=== PATIENT | female | born 1975 | race American Indian/Alaskan Native ===

== ENCOUNTER 2021-03-14 10:15 | Emergency (ER) | payer OTHER ==
[~2021-03-14] VITALS: Ht 170.2 cm; Wt 77.1 kg
--- NOTE | 2021-03-14 10:30 | NUR ---
HERE FOR MEDICAL CLEARANCE, PATIENT WANTS TO GO TO [facility] AND THEN TO A BOARD AND CARE. PATIENT IS ALERT AND ORIENTED X4, DENIES SI/HI AT THIS TIME. 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 GAMBOA AT BEDSIDE FOR AL.
--- NOTE | 2021-03-14 10:38 | NUR ---
DR. GAMBOA AT BEDSIDE FOR EVAL.
[2021-03-14] MEDS ORDERED: IBUPROFEN 600 MG TABLET ONE (10:40)
[2021-03-14] MEDS ORDERED: OLANZAPINE 5 MG TABLET ONE (10:40)
[2021-03-14 10:45] LABS: BASOPHILS # (AUTO) 0.1 /CMM (0.0-0.2); BASOPHILS % (AUTO) 0.7 % (0.0-2.0); EOSINOPHILS % (AUTO) 0.6 % (0.0-6.0); HEMATOCRIT 37 % (33-45); HEMOGLOBIN 12.3 g/dL (11.5-14.8); LYMPHOCYTES # (AUTO) 2.1 /CMM (0.8-4.8); LYMPHOCYTES % (AUTO) 24.6 % (20.0-44.0); MEAN CORPUSCULAR HGB CONC 34 g/dl (31.0-36.0); MEAN CORPUSCULAR VOLUME 93 fL (82-100); MONOCYTES # (AUTO) 0.4 /CMM (0.1-1.30); MONOCYTES % (AUTO) 5.2 % (2.0-12.0); NEUTROPHILS # (AUTO) 5.8 /CMM (1.8-8.9); NEUTROPHILS % (AUTO) 68.9 % (43.0-81.0); PLATELET COUNT (AUTO) 257 /CMM (150-450); RED BLOOD CELL COUNT(AUTO) 3.94 MIL/uL (4.0-5.2); WHITE BLOOD COUNT (AUTO) 8.4 K/uL (4.3-11.0)
--- NOTE | 2021-03-14 10:46 | NUR ---
URINE SENT TO LAB.
--- NOTE | 2021-03-14 10:50 | NUR ---
PATIENT PROVIDED WITH APPLE JUICE AND WATER.
--- NOTE | 2021-03-14 10:50 | NUR ---
"Client Relations Specialist consult: nutrition services aide consult requested for homelessness. Patient is a 45-year-old, female. SW met with patient at her bedside in the emergency department. Patient was alert and oriented x4. Patient was calm. Per chart, patient was brought into the emergency department on 03/14/21 for a medical clearance and requested to go to [facility] ([address] [place] [address]; ) and then to a board and care. Upon consult, patient requested to be transferred to [facility] for inpatient psychiatric treatment. Patient mentioned that she would later go to [facility] in [place] from [facility], and then go to a board and care in the area. SW will fax clinicals to [facility] for review. Patient stated that she is currently homeless and has been homeless for years. Patient is currently receiving SSI. Patient stated that she receives some support from her mother, Michelle, . SW asked patient if she has a history of substance use and patient denied history or current use. SW assessed patients history of mental illness and patient stated she has a history of Schizophrenia. Patient currently takes Zyprexa. Patient stated that she has a history of experiencing visual and auditory hallucinations. Patient described visual hallucinations as shadows and described her auditory hallucinations as hearing derogatory voices. Patient denied current hallucinations. Patient denied suicidal or homicidal ideation. SW offered patient homeless resources. Patient accepted the resources and thanked SW. Patient signed the homeless waiver form and SW filed waiver in the patients chart. ALYSSIA will fax clinicals to [facility] for review. PLAN: SW will fax clinicals to [facility] for review. No further SS intervention at this time, however, SS will remain available as needed. HOMELESS RESOURCES: Year-round shelters: [facility] [address] [place] [address] ; [facility] [address] [place] [address]; [facility] [id number] [facility]. [facility] [address] SPA 4 | [facility] Provider: [facility] Serve Address: [address] [place] [address] # of Beds: 48 Population Served: [facility] Provider: [facility] Serve Address: [address] [facility], [address] # of Beds: 73 Population Served: [facility] 6 | [facility] Provider: Home [facility] Last Address: [address] [facility], [address] # of Beds: 63 Population Served: [facility] 3 | [facility] Provider: [facility] [place] Address: [address] [facility], [address] # of Beds: 75 Population Served: [facility] 8 | [facility] Provider: [facility] [place] Address: [address] [place] [address] # of Beds: 80 Population Served: [facility] 1 | [facility] Provider: [facility] [place] Address: [address] [place] [address], [facility] # of Beds: 85 Population Served: [facility] 2 | [facility] Provider: [facility] Address: Confidential (please call for location) # of Beds: 52 Population Served: [facility] 4 | [facility] Provider: [facility] Address: [address] [facility], [address] # of Beds: 49 Population Served: [facility] Provider: First To Serve Address: [address] [facility], [address] # of Beds: 27 Population Served: [facility] Hy[facility]: [facility]: [address] [address] ; [facility] [address] [place] ; [facility] [address] . Food Resources: [place] [employer] [facility] at [facility]- [address] [place]; Meet Each Need with [facility] ([facility]) [address] [place] [facility]; [facility] [address] [facility]; [facility] [address] [place] [address] [place]. Mental Health resources provided: [facility] [address] [place], [place] [id number] ; [facility] [employer] [address] [facility] [address], [place], [place] [id number] ; [facility] [address] [place] [address] ; [facility] [place], [place] [id number] Healthcare Clinics: [facility] [address] [facility], [address] [place]. [place] ; [facility] [address] [facility] [address] [place] [address]; [facility] [address] [facility] [place] [phone]) [phone] Counseling--Outpatient [facility] [address] [facility] [facility], [place] [address] (Specializes in in-depth psychotherapy for emotional distress: anxiety, depression, interpersonal conflicts, life transitions, childhood abuse) PSYCHIATRIC OUTPATIENT SERVICES [facility] Partial Hospitalization and Intensive Outpatient Program (Managed Care and [place] Only) [address] [facility] [place] [id number] [facility] Partial Hospitalization and Outpatient Program [address] [place] [address] [facility] Partial Hospitalization and Outpatient Program [address] [place], [place] [id number] [facility] [employer] [address] [facility]. [address] [place], [place] [id number] [facility] Partial Hospitalization and Outpatient Program [address] [facility], [place] [phone] "
[2021-03-14 10:53] LABS: CALCIUM, SERUM 9.7 mg/dL (8.5-10.1); CARBON DIOXIDE 25 mmol/L (21-32); CHLORIDE 103 mmol/L (98-107); CREATININE 0.9 mg/dL (0.6-1.3); GLUCOSE 80 mg/dL (74-106); POTASSIUM 3.5 mmol/L (3.5-5.1); SODIUM SERUM 140 mmol/L (136-145); UREA NITROGEN, BLOOD 15 mg/dL (7-18)
--- NOTE | 2021-03-14 10:55 | NUR ---
ORDERED FOOD TRAY FOR PATIENT.
[2021-03-14 10:59] LABS: ALANINE AMINOTRANSFERASE 16 U/L (12-78); ALBUMIN 3.9 g/dL (3.4-5.0); ALCOHOL, BLOOD < 3 mg/dL (0-0); ALKALINE PHOSPHATASE 76 U/L (46-116); ASPARTATE AMINOTRANSFERASE 20 U/L (15-37); BILIRUBIN,DIRECT 0.2 mg/dL (0.0-0.2); BILIRUBIN,TOTAL 0.7 mg/dL (0.2-1.0); TOTAL PROTEIN, SERUM 7.3 g/dL (6.4-8.2)
[2021-03-14] MEDS ORDERED: OLANZAPINE 5 MG TABLET PO ONE (11:00)
[2021-03-14] MEDS ORDERED: IBUPROFEN 600 MG TABLET PO ONE (11:00)
--- NOTE | 2021-03-14 11:02 | NUR ---
Piece Work Inspector note: ALYSSIA faxed clinicals to [facility], , for review.
[2021-03-14 11:03] LABS: ACETAMINOPHEN 0 ug/ml (10-30)
[2021-03-14 11:11] LABS: BILIRUBIN,URINE MODERATE (NEGATIVE); COLOR,URINE BROWN (YELLOW); LEUKOCYTE ESTERASE ,URINE Negative (NEGATIVE); NITRITE, URINE Negative (NEGATIVE); PROTEIN,URINE >=300 mg/dl (NEGATIVE); UGLUCOSE Negative (NEGATIVE)
--- NOTE | 2021-03-14 11:15 | NUR ---
COVID ANTIGEN SWAB SENT TO LAB.
[2021-03-14 11:16] LABS: RBC,URINE 21-50 /HPF (0-2)
[2021-03-14 11:17] LABS: BACTERIA,URINE Few /HPF (None Seen); SQUAMOUS EPITHELIAL CELL,UR Few /HPF (None Seen); URINE AMORPHOUS URATE Few /HPF (None Seen)
--- NOTE | 2021-03-14 12:37 | NUR ---
PATIENT ASLEEP. KEPT COMFORTABLE. VSS.
[2021-03-14 13:50] VITALS: BP 143/84
--- NOTE | 2021-03-14 14:43 | NUR ---
ALYSSIA faxed H&P to [facility] fax: [phone] ATTN: Intake
--- NOTE | 2021-03-14 15:20 | NUR ---
RECEIVED A CALL FROM FROM [facility]. PATIENT ACCEPTED TO UNIT 1. NUMBER FOR REPORT IS [phone].
--- NOTE | 2021-03-14 15:23 | NUR ---
CALLED [facility] FOR TRANSPORT TO [facility]. ETA 30 MINUTES.
--- NOTE | 2021-03-14 15:31 | NUR ---
REPORT GIVEN TO ED RN AT [facility]
--- NOTE | 2021-03-14 15:57 | NUR ---
REPORT GIVEN TO FUSE ASSEMBLER. PATIENT AWAKE ALERT AND ORIENTED, NO DISTRESS NOTED. AMBULATORY WITH STEADY GAIT. VSS. PATIENT TRANSFERRED TO [facility] IN STABLE CONDITION. DISCHARGE PAPERWORKS GIVEN TO THE FUSE ASSEMBLER.
== END 2021-03-14 15:59 ==
LOC: ER 10:35
DX: F20.0 Paranoid schizophrenia (principal); R51.9 Headache, unspecified; Z20.822 Contact with and (suspected) exposure to COVID-19
CPT/HCPCS: 36415; 80048; 80076; 80143; 80307; 80320; 81001; 84703; 85025; 87086; 87426; 99285; C9803; G0480